=== PATIENT | female | born 1985 | race Caucasian/White ===

== ENCOUNTER 2023-06-18 06:39 | Day surgery (SDC) | payer OTHER, SELFPAY ==
[2023-06-15 16:52] VITALS: BMI 30.6
--- NOTE | 2023-06-18 | PATH_ITS ---
[facility] Accession Number: [id number] No. of containers..01 Tissue . 01 Material submitted: . fallopian tube - BILATERAL FALLOPIAN TUBES . 01 Diagnosis: Bilateral Fallopian Tubes, Bilateral Salpingectomy: Benign fallopian tubes and paratubal cysts. Negative for atypia and malignancy. MRV 06/25/2023 1632 Local . 01 Electronically signed: . Gurjit Davis MD, Pathologist NPI- [id number] . 01 Gross description: . The specimen is received in formalin labeled with the patient's name, , and bilateral fallopian tubes, and consists of two unoriented fimbriated fallopian tubes measuring 6.9 x 0.4 cm and 7.3 x 0.5 cm. The longer fallopian tube has violaceous smooth serosa. Several small cystic structures measuring 0.2 cm in greatest dimension filled with cloudy serous fluid are identified. Sectioning reveals an unremarkable stellate lumen. The shorter fallopian tube has violaceous smooth serosa with no cystic structures identified. Sectioning reveals an unremarkable stellate lumen. Supervisor Anodizing sections to include the one-half of bisected fimbriae and cross sections are submitted as follows: A1: Longer fallopian tube. A2: [place] fallopian tube. ([id number]) /FRR 06/24/2023 0500 Local . 01 Pathologist provided ICD-10: Z30.2 . 01 CPT . 577908 Specimen Comment: A courtesy copy of this report has been sent to [phone] Performed at: 01 [facility] [address] [place] [address] [address] [facility], [place], [place] [id number] MD Meek Moser MD Phone: [phone]
[2023-06-18 07:01] VITALS: BP 143/93; PULSE 100; RESP 20; TEMP 36.3; O2SAT 100; BMI 30.6
[2023-06-18] MEDS: LACTATED RINGERS 1,000 ML 42 ML IV (07:07)
[2023-06-18] MEDS: ACETAMINOPHEN IV 1,000 MG/100 ML VIAL 400 MG IV (07:09)
[2023-06-18] MEDS: SCOPOLAMINE 1 PATCH TOP (07:09)
--- NOTE | 2023-06-18 07:30 | PM.PREOP ---
Pre-operative Note COVID-19 COVID-19 status: Not tested Criteria for continued procedure: Non-surgical alternatives not available or appropriate per current SOC Interval Note History & Physical reviewed/Exam performed by Physician: Yes Changes to H&P: No
--- NOTE | 2023-06-18 08:01 | SUR.OPER ---
Lithotomy on padded OR bed, head on pillow, arms secured on padded arm boards at <90 degrees abduction. Legs secured in padded yellow fins stirrups.
[2023-06-18] MEDS: BUPIVACAINE 0.5% W/ EPI (PF) 30 ML VIAL INJ (08:06)
[2023-06-18 08:28] VITALS: BP 114/63; PULSE 103; RESP 10; TEMP 36.7; O2SAT 97
[2023-06-18 08:32] VITALS: BP 121/76; PULSE 93; RESP 12; O2SAT 100
[2023-06-18 08:38] VITALS: BP 121/81; PULSE 94; RESP 13; O2SAT 99
[2023-06-18 08:45] VITALS: BP 127/83; PULSE 100; RESP 17; O2SAT 100
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
== END 2023-06-18 08:51 | disposition home or self-care (01) ==
PROVIDERS: PCP Nurse Practitioner; Referring Provider Obstetrics & Gynecology; Visit Provider Obstetrics & Gynecology
PROC: 0UT74ZZ Resection of Bilateral Fallopian Tubes, Percutaneous Endoscopic Approach (ICD-10-PCS; CPT 58661; principal; 2023-06-18 07:45)
DX: Z30.2 Encounter for sterilization (principal); N83.8 Other noninflammatory disorders of ovary, fallopian tube and broad ligament
CPT/HCPCS: 58661; J0131; J1100; J1885; J2250; J2405; J2704; J3010